=== PATIENT | female | born 1995 | race Caucasian/White ===

== ENCOUNTER → 2016-12-10 | Outpatient (CLI) | payer BC ==
[2016-12-10 14:44] VITALS: BP 146/96
--- NOTE | 2016-12-10 14:44 | Urgent Care T Sheet Gen (E) ---
Intake General Temperature (Fahrenheit): 98.1 Pulse: 101 Blood Pressure Systolic: 146 Blood Pressure Diastolic: 96 Respirations: 16 SPO2: 97 Weight (Pounds): 206 Chief Complaint: stepped on glass last night Source: Patient Exam Limitations: No limitations History of Present Illness Initial Comments Pt reports she was at a friend's house and stepped on a piece of glass in the kitchen. The friend had broken a glass earlier in the day and evidently had missed this piece. Pt removed the glass and bandaged the foot, but she couldn't get it to stop bleeding completely and it seemed deep, so she has come in anticipating sutures. She has no idea when her last tetanus shot was, but thinks it would have been several years ago. Onset & Duration: Hours (about 12) Timing: Still present Severity: Moderate Recent Trauma: Yes Similar Sympotms Previously: No Allergies: Coded Allergies: No Known Drug Allergies (Unverified , 12/10/16) Additional Comment Takes oral control, unknown type. Respiratory Constitutional Symptoms: No Chills, No Fever EENTM: No symptoms reported Respiratory: No symptoms reported Cardiovascular: No symptoms reported Gastrointestinal/Abdominal: No symptoms reported Skin: See HPI Neurological: No symptoms reportedNo Numbness, No Paresthesia, No Weakness All Other Systems Reviewed Remaining Systems: All other systems reviewed with negative findings Past Fptfppk-[id number]-[id number] Hx Immunizations Up to Date Tetanus Booster (DTaP): Unknown Physical Exam Physical Exam General Appearance: WD/WN No apparent distress Eyes, Ears, Nose, Throat Ex: PERRL/EOMI Neck Exam: Non tender Full range of motion Supple Skin Exam: Normal color Warm/dry/intact (apart from laceration of L foot) No rashes Other (plantar wart of L great toe medial side noted, nontender) Extremity Exam: Laceration (over distal 1st metatarsal, planter surface, L foot) Tenderness (proximal and distal to laceration) Neurologic/Psychiatric Exam: No motor deficits No sensory deficits Procedures/Interventions Laceration Repair : Location Modifier: Left Wound Location: Foot (plantar surface, distal to MTP joint but about 0.5cm proximal from webbing of toes) Type: Laceration Wound Appearance: Well Approximated, Bleeding Laceration Depth: Subcutaneous Lesion Length: 1.3 Laceration Explored: Clean, No foreign body removed Skin Prep Used: Hibiclens Anesthesia: 1% Lidocaine Volume of Anesthetic (mls): 4 Suture: Ethlion Suture Size: 4-0 Number of Sutures: 4 Sterile Dressing Applied: Yes (with double antibiotic ointment) Progress Informed verbal consent obtained. No neurological, muscular, or circulatory deficits noted. Wound cleansed with water and Hibiclens and local anesthetic applied with lidocaine 1% for total of 4mL. Wound explored with no foreign bodies or contaminants noted. Closure performed with ethilon 4-0, numbering 4 sutures. Minimal bleeding noted. Dressing of nonstick dressing and antibiotic ointment applied. Pt tolerated well. Medications Administered Medications Adminstered: TDAP > 7 yrs (Lot# [id number] Exp: 04/06/18 Site L deltoid) Departure Urgent Care Impression Chief Complaint: stepped on glass last night Impression: Primary Impression: Laceration of foot excluding toes without complication Qualified Code: S91.312A - Laceration without foreign body, left foot, initial encounter Departure Disposition: 01 HOME OR SELF-CARE Condition: Stable Additional Instructions: Discussed with pt that she should stay off her foot as much as possible for the next couple days, and elevated it when resting to help with circulation and improve healing time. She is not to submerge the site in water until the sutures are removed, but can have a shower provided she is not in standing water. The sutures will need to be removed in 7-10 days, and she can use ibuprofen for pain as needed. I suggest off-loading the injury site if she has to be on her feet much; pt refuses a note for work or for her softball practice , but says she understands her restrictions. She should follow up for any fever, chills, redness, swelling, increasing pain, drainage, or other concerning symptoms. Pt states understanding and agrees to plan. All questions answered. End of report . VIRAJ MAURER Dec 10, 2016 13:42
== END ==
LOC: MHUC 09:06
PROVIDERS: ATTEND Physician Assistant Medical
DX: S91.312A Laceration without foreign body, left foot, initial encounter (principal); W25.XXXA Contact with sharp glass, initial encounter
CPT/HCPCS: 12001; 90471; 90715; 99213

== ENCOUNTER → 2016-12-19 | Outpatient (CLI) | payer BC ==
[2016-12-19 10:57] VITALS: BP 137/81
== END ==
LOC: MHUC 10:26
PROVIDERS: ATTEND Physician Assistant
DX: S91.112D Laceration without foreign body of left great toe without damage to nail, subsequent encounter (principal); X58.XXXD Exposure to other specified factors, subsequent encounter